=== PATIENT | male | born 1980 | race Caucasian/White ===

== ENCOUNTER 2019-02-13 16:22 | Inpatient (IN) | payer OTHER ==
[~2019-02-13] VITALS: Ht 160 cm; Wt 115.2 kg
--- NOTE | 2019-02-13 16:58 | NUR ---
C/O ABD PAIN SINCE WEDNESDAY AFTER HE ATE A BURGER, 12/12 PS +NV, -DIARRHEA WENT TO URGENT CARE TODAY RECOMMENDED CT SCAN. NO ACUTE DISTRESS NOTED. SKIN INTACT. NO OTHER COMPLAINTS AT THIS TIME. AT BEDSIDE. ON MONITOR AND READY FOR EVAL.
[2019-02-13] MEDS ORDERED: MORPHINE SULFATE INJ 4 MG/ML DISP.SYRIN ONE ×2 (17:17→19:06)
[2019-02-13] MEDS ORDERED: ONDANSETRON HCL/PF 4 MG/2 ML VIAL ONE (17:17)
[2019-02-13 17:25] LABS: APPEARANCE,URINE Clear (CLEAR); BILIRUBIN,URINE SMALL (NEGATIVE); BLOOD, URINE Small Ery/uL (NEGATIVE); COLOR,URINE Dark (YELLOW); KETONES,URINE Negative (NEGATIVE); LEUKOCYTE ESTERASE ,URINE Trace (NEGATIVE); NITRITE, URINE Negative (NEGATIVE); PH,URINE 6.5 (5.0-8.0); PROTEIN,URINE Trace mg/dl (NEGATIVE); UGLUCOSE Negative (NEGATIVE)
[2019-02-13 17:29] LABS: BASOPHILS # (AUTO) 0.1 /CMM (0.0-0.2); BASOPHILS % (AUTO) 0.5 % (0.0-2.0); EOSINOPHILS % (AUTO) 0.2 % (0.0-6.0); HEMATOCRIT 45 % (39-51); HEMOGLOBIN 15.8 g/dL (13.5-17.5); LYMPHOCYTES # (AUTO) 1.4 /CMM (0.8-4.8); LYMPHOCYTES % (AUTO) 10.7 % (20.0-44.0); MEAN CORPUSCULAR HGB CONC 35 g/dl (31.0-36.0); MEAN CORPUSCULAR VOLUME 88 fL (80-96); MONOCYTES # (AUTO) 1.2 /CMM (0.1-1.30); NEUTROPHILS # (AUTO) 10.5 /CMM (1.8-8.9); NEUTROPHILS % (AUTO) 79.6 % (43.0-81.0); PLATELET COUNT (AUTO) 235 /CMM (150-450); RED BLOOD CELL COUNT(AUTO) 5.13 MIL/uL (4.5-6.0); WHITE BLOOD COUNT (AUTO) 13.2 K/uL (4.3-11.0)
[2019-02-13] MEDS ORDERED: MORPHINE SULFATE INJ 2 MG/ML DISP.SYRIN IV ONE ×2 (17:30→19:00)
[2019-02-13] MEDS ORDERED: IV NS 0.9% 1,000 ML BAG IV ONE (17:30)
[2019-02-13] MEDS ORDERED: ONDANSETRON HCL/PF 4 MG/2 ML VIAL IVP ONE (17:30)
[2019-02-13 17:35] LABS: CALCIUM, SERUM 9.1 mg/dL (8.5-10.1); CREATININE 1.2 mg/dL (0.6-1.3)
[2019-02-13 17:37] LABS: BACTERIA,URINE Rare /HPF (None Seen)
[2019-02-13 17:38] LABS: SQUAMOUS EPITHELIAL CELL,UR None Seen /HPF (None Seen); URINE AMORPHOUS URATE Few /HPF (None Seen)
[2019-02-13 17:41] LABS: ALBUMIN 3.9 g/dL (3.4-5.0); BILIRUBIN,DIRECT 0.2 mg/dL (0.0-0.2); BILIRUBIN,TOTAL 1.1 mg/dL (0.2-1.0)
[2019-02-13] MEDS ORDERED: PIPERACILLIN /TAZOBACTAM 3.375 G in IV D5W 50 ML IV ONE (18:30)
[2019-02-13] MEDS ORDERED: PIPERACILLIN /TAZOBACTAM 3.375 G VIAL IV ONE (18:39)
--- NOTE | 2019-02-13 18:47 | NUR ---
PT STATES STILL HAVING PAIN. KIMBERLY BRIGGS NOTIFIED.
--- NOTE | 2019-02-13 19:08 | NUR ---
CALLED NURSING SUP REQUESTED MEDSURG BED
--- NOTE | 2019-02-13 19:08 | NUR ---
CALLED [facility]
--- NOTE | 2019-02-13 19:37 | NUR ---
314[facility]
--- NOTE | 2019-02-13 19:56 | NUR ---
REPORT GIVEN TO JOEL HANNON FOR 314-2 [facility]
[2019-02-13 20:00] VITALS: BP 126/74
--- NOTE | 2019-02-13 20:04 | NUR ---
[facility]
--- NOTE | 2019-02-13 20:15 | NUR ---
RN ADMITTING NOTES RECEIVED REPORT FROM CUSTOMER ASSISTANT SCOTTY. FOUND Pt ALREADY IN BED. NO S/S OF ACUTE DISTRESS OR SOB NOTED. Pt IS A/OX4, VERBAL, ABLE TO MAKE NEEDS KNOWN. IV ACCESS OF RAC #20G. AT BEDSIDE. Pt CURRENTLY SAYS HIS PAIN IS TOLERABLE WHEN HE DOES NOT MOVE AROUND MUCH, SAID THAT HE WILL CALL IF HE NEEDS ANY PAIN MEDS. SAFETY MEASURES IN PLACE. BED LOW, LOCKED, HOB ELEVATED, SIDE RAILS UP, CALL LIGHT AND BEDSIDE TABLE WITHIN REACH. WILL CONTINUE TO MONITOR Pt's CONDITION AND SAFETY THROUGHOUT THE NIGHT.
[2019-02-13] MEDS ORDERED: ACETAMINOPHEN 325 MG TABLET PO PRN (21:00)
[2019-02-13] MEDS ORDERED: ONDANSETRON HCL/PF 4 MG/2 ML VIAL IVP PRN (21:00)
[2019-02-13] MEDS ORDERED: MORPHINE SULFATE INJ 2 MG/ML DISP.SYRIN IV PRN (21:00)
[2019-02-13] MEDS ORDERED: ZOLPIDEM TARTRATE 5 MG TABLET PO PRN (21:00)
[2019-02-13] MEDS ORDERED: MAGNESIUM HYDROXIDE 30 ML UDC PO PRN (21:00)
[2019-02-13] MEDS ORDERED: Z GUARD REMEDY 2 OZ OINT TP PRN (21:00)
[2019-02-13] MEDS ORDERED: HYDROCODONE/APAP 5/325MG 1 EACH TABLET PO PRN (21:00)
[2019-02-13] MEDS ORDERED: MAG HYDROX/AL HYDROX/SIMETH 30 ML UDC PO PRN (21:00)
--- NOTE | 2019-02-13 21:00 | NUR ---
RN NOTES RN NOTES SPOKE WITH DR YAO ON THE PHONE. SAID THAT PATIENT WILL BE SCHEDULED FOR A LAPAROSCOPIC APPENDECTOMY WITH POSSIBLE OPEN EXPLORATORY AT 0730AM TOMORROW (02/14), & TO KEEP Pt NPO AFTER MIDNIGHT. WILL OBTAIN CONSENT FORM FOR Pt.
[2019-02-13] MEDS: FAMOTIDINE/PF INJ 20 MG/2 ML VIAL IV SCH (21:59)
[2019-02-13] MEDS: IV D5/0.45 NACL 1,000 ML IV PRN (21:59)
[2019-02-13 22:00] VITALS: BP 126/74
[2019-02-13] MEDS: PIPERACILLIN /TAZOBACTAM 3.375 G in IV D5W 100 ML IV SCH (23:47)
[2019-02-14] VITALS (13 sets, daily range): BP systolic 98–110; BP diastolic 51–76
--- NOTE | 2019-02-14 | NUR ---
RN NOTES Pt SIGNED CONSENT FORM FOR SX. PLACED IN CHART.
--- NOTE | 2019-02-14 06:54 | NUR ---
Pt'S CAR DETAILS: Pt PARKED HIS CAR IN THE 2ND FLOOR PARKING GARAGE. INFORMED SECURITY NOT TO TOW OR TICKET. [facility] PLATE #: [id number]
--- NOTE | 2019-02-14 06:55 | NUR ---
RN CLOSING NOTES NO SIGNIFICANT CHANGES IN Pt's CONDITION. Pt REMAINS STABLE PER BASELINE. NO S/S OF ACUTE DISTRESS OR SOB NOTED DURING THE NIGHT. Pt IS BEING TAKEN DOWN NOW TO OR FOR LAP APPENDECTOMY. VS STABLE. Pt HAS BEEN NPO SINCE [place]. SAFETY MEASURES IN PLACE. WILL ENDORSE TO DAYSHIFT RN FOR Pt's SHAHANA.
[2019-02-14 07:08] LABS: ALBUMIN 3.4 g/dL (3.4-5.0); BILIRUBIN,DIRECT 0.2 mg/dL (0.0-0.2); THYROID STIMULATING HORMONE 1.398 uIU/mL (0.358-3.74); TOTAL PROTEIN, SERUM 7.2 g/dL (6.4-8.2)
[2019-02-14] MEDS ORDERED: ANESTHESIA TRAY IN PYXIS 1 EA TRAY MC ONE (07:10)
[2019-02-14] MEDS ORDERED: BUPIVACAINE MPF 0.5% W/EPI INJ 30 ML VIAL ONE (07:10)
[2019-02-14] MEDS ORDERED: LIDOCAINE HCL/MPF 1% 30 ML VIAL IJ ONE (07:10)
[2019-02-14 07:17] LABS: BASOPHILS % (AUTO) 0.5 % (0.0-2.0); EOSINOPHILS % (AUTO) 0.5 % (0.0-6.0); HEMATOCRIT 43 % (39-51); HEMOGLOBIN 14.9 g/dL (13.5-17.5); LYMPHOCYTES % (AUTO) 12.8 % (20.0-44.0); MEAN CORPUSCULAR HGB CONC 35 g/dl (31.0-36.0); MEAN CORPUSCULAR VOLUME 88 fL (80-96); MONOCYTES # (AUTO) 0.7 /CMM (0.1-1.30); MONOCYTES % (AUTO) 9.6 % (2.0-12.0); NEUTROPHILS # (AUTO) 5.9 /CMM (1.8-8.9); NEUTROPHILS % (AUTO) 76.6 % (43.0-81.0); PLATELET COUNT (AUTO) 195 /CMM (150-450); WHITE BLOOD COUNT (AUTO) 7.7 K/uL (4.3-11.0)
[2019-02-14 07:19] LABS: CALCIUM, SERUM 8.5 mg/dL (8.5-10.1); CREATININE 1.4 mg/dL (0.6-1.3); MAGNESIUM 1.9 mg/dL (1.8-2.4); PHOSPHORUS 2.7 mg/dL (2.5-4.9); POTASSIUM 3.8 mmol/L (3.5-5.1)
[2019-02-14] MEDS ORDERED: MIDAZOLAM HCL 2 MG/2ML VIAL ONE (07:24)
[2019-02-14] MEDS ORDERED: ROCURONIUM BROMIDE 50 MG/5 ML ONE ×2 (07:24→07:59)
[2019-02-14] MEDS ORDERED: HYDROMORPHONE INJ 2 MG/ML DISP.SYRIN ONE (07:24)
[2019-02-14] MEDS: PIPERACILLIN /TAZOBACTAM 3.375 G in IV D5W 100 ML IV SCH (08:00)
[2019-02-14] MEDS: FAMOTIDINE/PF INJ 20 MG/2 ML VIAL IV SCH ×2 (09:00→21:06)
[2019-02-14] MEDS ORDERED: PANTOPRAZOLE 40 MG VIAL IV SCH (09:00)
[2019-02-14] MEDS ORDERED: HYDROMORPHONE 1 MG/1 ML DISP.SYRIN ONE (09:15)
--- NOTE | 2019-02-14 10:05 | NUR ---
MS RN ADMITTING NOTES PATIENT ARRIVED UNIT @ 1000 VIA GURNEY WITH 2 HOSPITAL STAFF FROM SURGERY. S/P APPENDECTOMY. REPORT RECEIVED FROM NICOLA. PATIENT AWAKE, ALERT AND ORIENTED X4. IVF ON RIGHT AC #20 INFUSING WELL. NO ACUTE DISTRESS. PATIENT CALM AND RELAXED. NO CHANGES IN LOC NOTED AT THIS TIME. PATIENT ORIENTED TO UNIT, ROOM AND STAFF. SAFETY MEASURES IN PLACED, BED IN LOW LOCKED POSITION WITH SIDE RAILS UP X2. CALL LIGHT WITHIN EASY REACH. WILL CONTINUE TO MONITOR.
[2019-02-14] MEDS: ZOSYN IVPB 3.375 G in IV D5W 50ml IV SCH ×2 (13:36→19:36)
[2019-02-14] MEDS: HYDROCODONE/APAP 10/325MG 1 EA TABLET PO PRN ×2 (15:17→21:54)
[2019-02-14] MEDS: IV D5/0.45 NACL 1,000 ML IV PRN (17:38)
[2019-02-14] MEDS: HYDROMORPHONE 1 MG/1 ML DISP.SYRIN IV PRN (17:51)
--- NOTE | 2019-02-14 19:00 | NUR ---
MS RN CLOSING NOTES PATIENT IN BED RESTING COMFORTABLY IN MODERATE HIGH BACK REST. A/O X4. ON RA, TOLERATING WELL. IVF ON RIGHT AC #20 WITH D51/2 NS @ 125ML/HR. INFUSING WELL. SAFETY MEASURES PLACE, BED IN LOW LOCKED POSITION WITH SIDE RAILS UP X2. CALL LIGHT WITHIN EASY REACH. ENDORSED TO COMPUTER NUMERICAL CONTROL OPERATOR NURSE FOR SHAHANA.
--- NOTE | 2019-02-14 19:20 | NUR ---
MS RN OPENING NOTES Received patient A/O x4, awake on bed. On RA, no SOB/respiratory distress noted at this time. Patient denies discomfort at this time. Kept on bed, clean, dry and comfortable. Call light within easy reach, will continue to monitor accordingly.
--- NOTE | 2019-02-14 20:30 | NUR ---
MS RN NOTES Patient verbalized concern of frequent IV pump alarm. Patient is using cellphone in texting and a laptop at this time. Discussed to patient that bending of RAC makes the IV alarm on. Informed patient that if he constantly in use of his right arm, IV site may be transferred. Otherwise, patient will increase oral fluid intake to held the IVF at this time. Patient agreed to increase his oral fluid intake but to use the IV site for IV ATB. Ensure water at bedside within easy reach. Will continue to monitor the patient accordingly.
[2019-02-15] MEDS: ZOSYN IVPB 3.375 G in IV D5W 50ml IV SCH (01:01)
[2019-02-15] MEDS: HYDROMORPHONE 1 MG/1 ML DISP.SYRIN IV PRN ×3 (02:48→13:05)
--- NOTE | 2019-02-15 06:57 | NUR ---
MS RN CLOSING NOTES Patient asleep, easily awaken. No new complaints made. Afebrile the whole shift. On RA, no SOB/respiratory distress noted. 3rd dose of Zosyn administered as ordered, total dose of ATB completed, no ASE noted. Medicated for pain, noted effective. All nursing needs attended. For blood draw for morning labs per patient request not to interrupt his slept. Kept on bed clean, dry and comfortable. Call light within easy reach. Endorsed to the next shift.
--- NOTE | 2019-02-15 07:30 | NUR ---
MS/RN NOTE THE PATIENT IS RECEIVED IN BED. ALERT AND ORIENTED X4. IN ROOM AIR AND DENIES SOB. RESPIRATION REGULAR AND UNLABORED. COMPLAINS ABDOMINAL PAIN /10. ABDOMEN SOFT AND LITTLE DISTENDED. LAPAROSCOPIC INCISIONS COVERED WITH A A DRESSING THAT HAS SMALL AMOUNT OF DRY BLOOD. RAC G 20 PATENT AND SALINE LOCKED. THE PATIENT IS MADE AWARE ABOUT STANDING ORDER FOR D5 1/2 NS AT 125 ML/HR, EXPLAINED RISKS AND BENEFITS AND THE PATIENT AGREED IV FLUID TO BE CONNECTED BACK. NO S/S INFILTRATION NOTED. BED LOW AND LOCKED. SIDE RAILS UP X3. CALL LIGHT WITHIN REACH. WILL CONTINUE TO MONITOR.
[2019-02-15 08:00] VITALS: BP 117/62
[2019-02-15 08:07] LABS: BASOPHILS % (AUTO) 0.7 % (0.0-2.0); EOSINOPHILS % (AUTO) 1.3 % (0.0-6.0); HEMATOCRIT 40 % (39-51); HEMOGLOBIN 13.7 g/dL (13.5-17.5); LYMPHOCYTES # (AUTO) 2.4 /CMM (0.8-4.8); LYMPHOCYTES % (AUTO) 35.8 % (20.0-44.0); MEAN CORPUSCULAR HGB CONC 35 g/dl (31.0-36.0); MEAN CORPUSCULAR VOLUME 88 fL (80-96); MONOCYTES % (AUTO) 15.4 % (2.0-12.0); NEUTROPHILS # (AUTO) 3.1 /CMM (1.8-8.9); NEUTROPHILS % (AUTO) 46.8 % (43.0-81.0); PLATELET COUNT (AUTO) 189 /CMM (150-450); WHITE BLOOD COUNT (AUTO) 6.7 K/uL (4.3-11.0)
[2019-02-15 08:17] LABS: CALCIUM, SERUM 8.2 mg/dL (8.5-10.1); CREATININE 1.3 mg/dL (0.6-1.3); PHOSPHORUS 3.8 mg/dL (2.5-4.9); POTASSIUM 3.8 mmol/L (3.5-5.1)
[2019-02-15] MEDS: FAMOTIDINE/PF INJ 20 MG/2 ML VIAL IV SCH (08:20)
--- NOTE | 2019-02-15 08:37 | NUR ---
MS/RN NOTE THE PATIENT IS SEEN AND EXAMINED BY DR GARNER WITH NEW ORDER TO DISCONTINUE CLEAR LIQUID DIET AND START NEW DIET ORDER OF FULL LIQUID. READ BACK, VERIFIED. NOTED AND CARRIED OUT.
[2019-02-15] MEDS: IV D5/0.45 NACL 1,000 ML IV PRN (09:09)
[2019-02-15 09:11] LABS: BAND % (MANUAL) 5 % (0.0-5.0); EOSINOPHILS % (MANUAL) 3 % (0-4); LYMPHOCYTES % (MANUAL) 36 % (16-48); MONOCYTES % (MANUAL) 16 % (0-11.0); NEUTROPHILS % (MANUAL) 40 (42-76)
--- NOTE | 2019-02-15 10:39 | NUR ---
MS/RN NOTE THE PATIENT REFUSES ANY IV FLUIDS. THE PATIENT HAS AN ORDER OF D5 1/2 NS AT 125 ML/HR BUT HE STILL REFUSES DESPITE EXPLAINING RISKS AND BENEFITS. DR GARNER IS MADE AWARE.
--- NOTE | 2019-02-15 13:00 | NUR ---
MS/RN NOTE THE PATIENT TOLERATES FULL LIQUID DIET WEL.
--- NOTE | 2019-02-15 14:04 | NUR ---
MS/RN NOTE THE PATIENT IS SEEN BY DR YAO WITH NEW ORDER OF REGULAR DIET. READ BACK, VERIFIED. NOTED AND CARRIED OUT. ALSO, PER DR YAO PATIENT IS CLEARED FOR DISCHARGE. PAGED DR GARNER FOR A DISCHARGE ORDER.
--- NOTE | 2019-02-15 14:40 | NUR ---
MS/RN NOTE WAITING FOR DISCHARGE ORDER FROM DR GARNER.
--- NOTE | 2019-02-15 14:45 | NUR ---
MS/RN NOTE THE PATIENT IS SERVED REGULAR DIET AND HE TOLERATED IT WELL.
[2019-02-15] MEDS: HYDROCODONE/APAP 10/325MG 1 EA TABLET PO PRN (15:34)
[2019-02-15 16:00] VITALS: BP 123/78
--- NOTE | 2019-02-15 17:53 | NUR ---
MS/RN NOTE THE PATIENT ALERT AND ORIENTED X4. IN ROOM AIR AND SATURATION IS AT 98%. DENIES SOB. RESPIRATION REGULAR AND UNLABORED. DENIES PAIN AT THIS TIME. THE PATIENT IN NO APPARENT DISTRESS. ABDOMINAL LAPAROSCOPIC INCISIONS (HALLS) ARE COVERED WITH MEPILEX AND NO DISCHARGE NOTED. THE PATIENT IN NO APPARENT DISTRESS. THE PATIENT TOLERATED REGULAR DIET WELL. NO NAUSEA OR VOMITING NOTED. DISCHARGE EDUCATION PROVIDED TO THE PATIENT AND HE VERBALIZED UNDERSTANDING. PRESCRIPTION GIVEN TO THE PATIENT AND THE COPY IS SAVED IN THE CHART. THE PATIENT PICKED UP BY IN A PRIVATE CAR. LEFT THE HOSPITAL IN STABLE CONDITION.
== END 2019-02-15 17:39 | disposition home or self-care (01) | DRG 710 ==
LOC: ER 16:25 → MED 19:43
PROVIDERS: ADMIT Student in an Organized Health Care Education/Training Program; ATTEND Family Medicine
PROC: 0DTJ4ZZ Resection of Appendix, Percutaneous Endoscopic Approach (ICD-10-PCS; principal; 2019-02-14)
DX: A41.9 Sepsis, unspecified organism (principal); K35.80 Unspecified acute appendicitis; E80.6 Other disorders of bilirubin metabolism
CPT/HCPCS: 36415; 80048-TC; 80061-TC; 80076-TC; 81000-TC; 83690-TC; 83735-TC; 84100-TC; 84443-TC; 85025-TC; 85730-TC; 86850-TC; 87081-TC; 87086-TC; 88304-TC; C9113; G0378; J0330; J1100; J1170; J1885; J2250; J2270; J2405; J2543; J2704; J2710; J3490; J7030; J7060

== ENCOUNTER 2019-09-22 15:39 | Emergency (ER) | payer OTHER ==
[~2019-09-22] VITALS: Ht 182.9 cm; Wt 121.6 kg
[2019-09-22 15:49] VITALS: BP 141/88
[2019-09-22] MEDS ORDERED: KETOROLAC TROMETHAMINE INJ 30 MG/ML VIAL ONE (16:24)
[2019-09-22] MEDS ORDERED: KETOROLAC TROMETHAMINE INJ 60 MG/2 ML VIAL IM ONE (16:30)
== END 2019-09-22 16:29 | disposition home or self-care (01) ==
LOC: ER 15:44
DX: S33.5XXA Sprain of ligaments of lumbar spine, initial encounter (principal); X58.XXXA Exposure to other specified factors, initial encounter; Y93.89 Activity, other specified; Y92.89 Other specified places as the place of occurrence of the external cause; Y99.8 Other external cause status
CPT/HCPCS: 96372; 99283; J1885

== ENCOUNTER 2019-12-07 16:08 | Emergency (ER) | payer OTHER ==
[~2019-12-07] VITALS: Ht 182.9 cm; Wt 117.9 kg
[2019-12-07 16:10] VITALS: BP 129/82
--- NOTE | 2019-12-07 17:22 | NUR ---
Patient discharged to home in stable condition. Written and verbal after care instructions given. Patient verbalizes understanding of instruction. Pt ambulatory with a steady gait
== END 2019-12-07 17:23 | disposition home or self-care (01) ==
LOC: ER 16:11
DX: M54.5 Low back pain (principal)